=== PATIENT | female | born 1945 | race Hispanic/Latino ===

== ENCOUNTER → 2019-01-11 | Outpatient (CLI) | payer MEDICARE | END | disposition home or self-care (01) | LOC: SHCH 10:47 | PROVIDERS: ATTEND Internal Medicine Cardiovascular Disease | DX: I51.7 Cardiomegaly (principal); I20.9 Angina pectoris, unspecified | CPT/HCPCS: 93306 ==

== ENCOUNTER → 2019-01-20 | Outpatient (CLI) | payer MEDICARE | END | disposition home or self-care (01) | LOC: SHCH 13:38 | PROVIDERS: ATTEND Internal Medicine Cardiovascular Disease | DX: I65.23 Occlusion and stenosis of bilateral carotid arteries (principal) | CPT/HCPCS: 93880; 93925 ==

== ENCOUNTER → 2019-01-22 | Outpatient (CLI) | payer MEDICARE ==
[~2019-01-22] VITALS: Ht 167.6 cm; Wt 61.7 kg
[~2019-01-22] MED LIST: REGADENOSON 0.4 MG/5 ML PF SYG IVP SCH
== END | disposition home or self-care (01) ==
LOC: SHCH 08:00
PROVIDERS: ATTEND Internal Medicine Cardiovascular Disease
DX: I20.9 Angina pectoris, unspecified (principal); R06.09 Other forms of dyspnea
CPT/HCPCS: 78452; 93017; 96374; A9500 ×2; J2785

== ENCOUNTER 2019-10-24 10:00 | Emergency (ER) | payer OTHER, MEDICARE ==
[2019-10-24] MEDS ORDERED: KETOROLAC TROMETHAMINE 15MG/ML ONE (11:21)
[2019-10-24] MEDS ORDERED: CEFTRIAXONE SODIUM 2 GM VIAL ONE (11:21)
[2019-10-24 12:22] LABS: BASOPHILS % (AUTO) 0.5 % (0.0-5.0); EOSINOPHILS % (AUTO) 1.8 % (0.0-8.0); HEMATOCRIT 38.2 % (42-54); LYMPHOCYTES % (AUTO) 26.7 % (21.0-51.0); MEAN CORPUSCULAR HEMOGLOBIN 29.7 pg (27.0-33.0); MEAN CORPUSCULAR VOLUME 87.4 fL (79-99); NEUTROPHILS % (AUTO) 63.8 % (40.0-77.0); PLATELET COUNT (AUTO) 218 K/uL (130-400); RED BLOOD CELL COUNT(AUTO) 4.37 MIL/uL (4.50-6.20); RED CELL DISTRIBUTION WIDTH 12.2 % (11.0-15.5); WHITE BLOOD COUNT (AUTO) 8.4 K/uL (4.8-10.8)
[2019-10-24 12:43] LABS: INR 0.93 (0.85-1.15); PARTIAL THROMBOPLASTIN TIME 25.2 SEC (26.3-35.5); PROTHROMBIN TIME 10.1 SEC (9.6-11.6)
[2019-10-24 13:51] LABS: CREATININE 1.1 mg/dL (0.5-1.5); POTASSIUM 3.8 mmol/L (3.5-5.1)
[2019-10-24 13:55] LABS: ALBUMIN 4.2 g/dL (3.5-5.0); BILIRUBIN,TOTAL 0.4 mg/dL (0.2-1.0); TOTAL PROTEIN, SERUM 7.8 g/dL (6.0-8.3)
== END 2019-10-24 14:04 | disposition home or self-care (01) ==
LOC: EDH 10:00 → EDSEX 10:00 → EDH 14:04
DX: L03.115 Cellulitis of right lower limb (principal); L97.519 Non-pressure chronic ulcer of other part of right foot with unspecified severity; E11.621 Type 2 diabetes mellitus with foot ulcer; I10 Essential (primary) hypertension; E11.9 Type 2 diabetes mellitus without complications
CPT/HCPCS: 36415; 73630; 80053; 83605; 84145; 85025; 85610; 85730; 87088; 96361; 96374; 96375; 99284; J0696; J1885

== ENCOUNTER 2019-10-26 09:41 | Emergency (ER) | payer OTHER, MEDICARE ==
[2019-10-26 10:08] LABS: BASOPHILS % (AUTO) 0.3 % (0.0-5.0); EOSINOPHILS % (AUTO) 2.7 % (0.0-8.0); HEMATOCRIT 38.7 % (42-54); LYMPHOCYTES % (AUTO) 27.5 % (21.0-51.0); MEAN CORPUSCULAR HEMOGLOBIN 29.6 pg (27.0-33.0); MEAN CORPUSCULAR HGB CONC 33.9 g/dL (32.0-36.0); MEAN CORPUSCULAR VOLUME 87.6 fL (79-99); MONOCYTES % (AUTO) 7.6 % (3.0-13.0); NEUTROPHILS % (AUTO) 61.6 % (40.0-77.0); PLATELET COUNT (AUTO) 208 K/uL (130-400); RED BLOOD CELL COUNT(AUTO) 4.42 MIL/uL (4.50-6.20); RED CELL DISTRIBUTION WIDTH 12.5 % (11.0-15.5); WHITE BLOOD COUNT (AUTO) 7.3 K/uL (4.8-10.8)
[2019-10-26 10:18] LABS: POTASSIUM 3.8 mmol/L (3.5-5.1)
[2019-10-26 10:23] LABS: ALBUMIN 4.1 g/dL (3.5-5.0); BILIRUBIN,TOTAL 0.4 mg/dL (0.2-1.0); TOTAL PROTEIN, SERUM 7.8 g/dL (6.0-8.3)
== END 2019-10-26 11:59 | disposition home or self-care (01) ==
LOC: EDH 09:41
DX: M54.16 Radiculopathy, lumbar region (principal); M79.604 Pain in right leg; I10 Essential (primary) hypertension; E11.9 Type 2 diabetes mellitus without complications
CPT/HCPCS: 36415; 72131; 72170; 80053; 85025; 93971

== ENCOUNTER 2020-12-14 10:38 | Emergency (ER) | payer OTHER, MEDICARE ==
[~2020-12-14] VITALS: Ht 167.6 cm; Wt 61.2 kg
[2020-12-14] MEDS ORDERED: HYDROCODONE/ACETAMINOPHEN 5/325 MG TAB PO SCH (11:00)
[2020-12-14] MEDS ORDERED: KETOROLAC 60 MG VIAL (30MG/ML) IM SCH (11:00)
[2020-12-14] MEDS ORDERED: LIDOP TD (12:25)
[2020-12-14 14:19] VITALS: BP 135/76
== END 2020-12-14 14:20 | disposition home or self-care (01) ==
LOC: EDH 10:38
DX: M51.16 Intervertebral disc disorders with radiculopathy, lumbar region (principal); E11.9 Type 2 diabetes mellitus without complications; E78.00 Pure hypercholesterolemia, unspecified; I10 Essential (primary) hypertension; Z79.1 Long term (current) use of non-steroidal anti-inflammatories (NSAID)
CPT/HCPCS: 72100; 96372; 99283; J1885

== ENCOUNTER 2020-12-14 16:12 | Emergency (ER) | payer OTHER, MEDICARE ==
[~2020-12-14] VITALS: Ht 167.6 cm; Wt 61.2 kg
[~2020-12-14 16:12] MED LIST changes: +LIDOP TD; -REGADENOSON 0.4 MG/5 ML PF SYG IVP SCH
[2020-12-14 16:13] VITALS: BP 160/76
[2020-12-14 17:57] VITALS: BP 154/76
[2020-12-14 19:41] VITALS: BP 129/70
== END 2020-12-14 19:49 | disposition home or self-care (01) ==
LOC: EDH 16:12
DX: M47.26 Other spondylosis with radiculopathy, lumbar region (principal); E11.9 Type 2 diabetes mellitus without complications; E78.00 Pure hypercholesterolemia, unspecified; I10 Essential (primary) hypertension
CPT/HCPCS: 72100; 72148; 96372; 99283; 99284; J1885

== ENCOUNTER → 2025-01-25 | Outpatient (CLI) | payer OTHER, MEDICAID ==
[2025-01-25] MEDS: REGADENOSON 0.4 MG/5 ML PF SYG IVP ONE (11:34)
--- NOTE | 2025-01-25 16:55 | HMCSR ---
APPROVED REPORT Height: 5 ft 6in Weight: 124 lbs TEST INDICATIONS Chest Pain The imaging protocol used to acquire images was Rest Tc-99m/stress Tc-99m 1 day Consent: The procedure was explained and understood by the patient. Informerd consent was witnessed Kamila Elizabeth RN First, low dose rest was performed then high dose stress. RESTING DATA: The resting ekg shows: NSR Rest SPECT myocardial perfusion imaging was performed in supine position minutes following the intra venous injection of mCi of Tc-99 Sestamibi. Time of rest injection: 11:03: Date: 01/25/2025 PHARMACOLOGIC STRESS: Pharmacologic stress test was performed by injecting regadenoson 0.4 mg IV push followed by the intra venous injection of 30 mCi of Tc-99 Sestamibi. Time of stress injection: 12:26: Date: 01/25/2025 Heart Rate at time of stress injection: 67 bpm. Gated Stress SPECT was performed 60 minutes after stress injection. The images were gated to evaluate regional wall motion and calculate left ventricular ejection fracti on. STRESS DETAILS Reason for Termination: Infusion complete Stress Symptoms: No chest pain or symptoms Max HR Achieved: 98 bpm % of APMHR Achieved: 82 Max Blood Pressure: 134/62 mmHg Stress ECG: NSR Study quality was good. Lung uptake was Normal. Artifact: increased GI uptake LEFT VENTRICLE Size: The left ventricular size is small. Systolic Function:The left ventricular systolic function is hyperdynamic. Wall Motion: No regional wall motion abnormalities noted. The left ventricular ejection fraction was calculated to be 81%.TID = 1.00. LV PERFUSION Fixed decreased radiotracer uptake noted of mild degree and size in the inferior wall present on both the rest and stress images but actually more prominent on the rest images. Conclusion Probably normal myocardial perfusion scan with slight fixed defect inferiorly related to GI artifact Hyperdynamic left ventricular ejection fraction 81% Normal transient ischemic dilatation ratio No evidence of ischemia Low risk scan Clinical correlation recommended
== END | disposition home or self-care (01) ==
LOC: RAH 10:44
PROVIDERS: ATTEND Internal Medicine Cardiovascular Disease
DX: R07.9 Chest pain, unspecified (principal)
CPT/HCPCS: 78452; 93017; J2785; A9500 ×2